=== PATIENT | female | born 1975 ===

== ENCOUNTER → 2018-09-19 20:55 | Outpatient (ROUT) | payer OTHER, SELFPAY ==
[2018-09-19 23:05] LABS: Hemoglobin A1C% w Est Avg Glu 5.4 % (4.0-6.0)
[2018-09-20 00:54] LABS: Free T3, Triiodothyronine Free 3.06 pg/mL (2.77-5.27); Free T4, Direct Thyroxine 0.93 ng/dL (0.78-2.19)
[2018-09-20 01:08] LABS: Thyroid Stimulating Hormone 2.95 uIU/mL (0.47-4.68)
== END ==
PROVIDERS: Visit Provider Physician Assistant
DX: H81.12 Benign paroxysmal vertigo, left ear (principal)
CPT/HCPCS: 36415; 83036; 84439; 84443; 84481